=== PATIENT | female | born 1950 | race Caucasian/White ===

== ENCOUNTER 2017-03-30 12:44 | Emergency (ER) | payer MEDICARE, OTHER ==
[2017-03-30] MEDS ORDERED: CYMBALTA60 M1 PO (13:23)
[2017-03-30] MEDS ORDERED: PRINIVIL10 M1 PO (13:23)
[2017-03-30] MEDS ORDERED: TRAMADOL HCL E200 M1 PO (13:23)
[2017-03-30] MEDS ORDERED: GLUCOSAMINE H1500 M1 PO (13:24)
[2017-03-30] MEDS ORDERED: NORCO 5-325 TA1 EACH PO (14:47)
== END 2017-03-30 15:19 ==
LOC: EDMED 12:44
PROC: 0RSJXZZ Reposition Right Shoulder Joint, External Approach (ICD-10-PCS; principal; 2017-03-30)
DX: S43.004A Unspecified dislocation of right shoulder joint, initial encounter (principal); W01.0XXA Fall on same level from slipping, tripping and stumbling without subsequent striking against object, initial encounter
CPT/HCPCS: J2270; J2405; J2704; J7030